=== PATIENT | male | born 1960 | race Caucasian/White ===

== ENCOUNTER 2016-11-20 11:14 | Emergency (ER) | payer OTHER, MEDICARE ==
[~2016-11-20] VITALS: Ht 172.7 cm; Wt 95.3 kg
[~2016-11-20 11:14] MED LIST: BACTRIM DS 8001 TAB PO; KEFLEX 250MG C250 MG PO; OXYCODONE HYDRO30 MG PO
[2016-11-20 11:33] VITALS: BP 139/92
--- NOTE | 2016-11-20 12:18 | ED SKIN/ALLERGY COMPLAINT ---
History of Present Illness General Chief Complaint: Animal/Insect Bite Stated Complaint: INSECT BITE TO RIGHT ELBOW Source: patient Exam Limitations: no limitations Vital Signs & Intake/Output Vital Signs & Intake/Output ED Intake and Output 11/21 0000 11/20 1200 Intake Total 10 Output Total Balance 10 Intake, Oral 10 Patient 210 lb Weight Allergies Coded Allergies: NO KNOWN ALLERGIES (08/16/11) Triage Note: RECEIVED 56 YO MALE C/O BIT ON RIGHT ELBOW ABOUT 1 1/2 WEEKS AGO. AREA IS REDDENED, SWOLLEN AND SMALL KELBY SIZE AREA OPEN AND NOT HEALING. PT REPORTS FEVERS ALL WEEK, FEELING TIRED, FATIGUED. PT PRONE TO INFECTIONS. PT S/P TOTAL RIGHT KNEE REPLACEMENT Triage Nurses Notes Reviewed? yes HPI: This patient is a 56-year-old male who presented to the emergency department today for evaluation of a questionable insect bite to his right elbow. He reported that he noticed this about a week and a half ago. He noticed it because the area was itchy. He reported that it continually has been scabbing over and then the scab falls off. He reported that it seems open and a little red around it now. The patient reported that he has been having tactile fevers and chills. He reported nausea and shortness of breath. He reported that he feels bloated and at his face feels swollen. He denied any chest pain, abdominal pain. He did report feeling fatigued. He does live in the [facility] and is wondering if he could have had a tick bite. (VANESSA MULLIGAN PA-C) Reconcile Medications Doxycycline Hyclate (Vibramycin) 100 MG CAPSULE 1 CAP PO BID insect bite OXYCODONE HCL (Oxycodone Hydrochloride) 30 MG TABLET 2 TAB PO TID PRN PAIN ( Reported) (GAURAV MONDRAGON,BENSON) Past History Travel History Traveled to [place] past 21 day No Medical History Any Pertinent Medical History? 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 No (VANESSA MULLIGAN PA-C) Review of Systems Review of Systems Constitutional: Reports: see HPI. EENTM: Reports: no symptoms. Respiratory: Reports: see HPI. Cardiovascular: Reports: no symptoms. GI: Reports: see HPI. Genitourinary: Reports: no symptoms. Musculoskeletal: Reports: no symptoms. Skin: Reports: see HPI. Neurological/Psychological: Reports: no symptoms. All Other Systems: Reviewed and Negative (VANESSA MULLIGAN PA-C) Physical Exam Physical Exam General Appearance: well developed/nourished, no apparent distress, alert, awake Comments: Well-developed well-nourished person in no acute distress HEENT: Normal EENT exam, head normocephalic, moist mucous membranes Neck: Supple, no lymphadenopathy Back: Normal gait Cardiovascular: Regular rate and rhythm with no murmurs Respiratory: Chest nontender. No respiratory distress. Breath sounds clear to auscultation bilaterally Abdomen: Soft, nontender and nondistended Right elbow: Full range of motion of the elbow. No bony or muscular deformities. Approximately 1 cm in diameter, ulceration to the olecranon process with mild amount of surrounding erythema with no surrounding edema. Mild tenderness to palpation. Neuro: Alert oriented x3, cranial nerves II through XII grossly intact. Skin: Small, round, possibly 1 mm in diameter, erythematous, macular lesions to the stomach with overlying excoriations. skin is warm and dry. Psych: Mood and affect is normal, memory and judgment is normal. (VANESSA MULLIGAN PA-C) Progress Differential Diagnosis: abscess/cellulitis, allergic reaction, contact dermatitis, drug reaction, erythema multiforme, lyme disease, urticaria Plan of Care: Orders Procedure Date/time Status Add-on Test (ER Only) 11/20 1301 Active DIRECT BILIRUBIN 11/20 1220 Complete Initial ED EKG: normal axis, normal intervals, normal p-waves, normal QRS complex, normal sinus rhythm, no ST T wave changes, 63 BPM (VANESSA MULLIGAN PA-C) Comments: 11/22/2016 4:58:32 PM Jake called me in the emergency department stating he had missed "3 calls from the hospital". I reviewed his emergency department visit but was unable to determine what the cause might be related to. He states he is still having intermittent fevers and arm swelling secondary to some sort of insect bite and I've asked that he return to the emergency department given the persistence of the symptoms for reevaluation. 11/22/2016 7:45:10 PM Jake contacted me again short while ago stating that he has spoken with Freddie Glover MD his primary care doctor that he would be following up with Freddie Glover MD on . He therefore will not be reevaluated in the emergency department. He states that he feels well in general and that his fever has been under control and that he has been tolerating his medications. (JAGDISH MONDRAGON,GIFTY Krishnan) Departure Departure Disposition: HOME OR SELF CARE Condition: Stable Clinical Impression Primary Impression: Insect bite Qualifiers: Encounter type: initial encounter Qualified Code: W57.XXXA - Bitten or stung by nonvenomous insect and other nonvenomous arthropods, initial encounter Referrals: MULUGETA GLOVER MD (PCP/Family) Additional Instructions: Take antibiotic as prescribed for the full duration. Please return to the emergency department for any worsening symptoms or concerns. Departure Forms: Customer Survey General Discharge Information Prescriptions: Current Visit Scripts Doxycycline Hyclate (Vibramycin) 1 CAP PO BID #20 CAP (VANESSA MULLIGAN PA-C) PA/ELECTRO MECHANICAL SOLAR TECHNICIAN Co-Sign Statement Statement: ED Attending supervision documentation- [] I saw and evaluated the patient. I have also reviewed all the pertinent lab results and diagnostic results. I agree with the findings and the plan of care as documented in the PA's/ELECTRO MECHANICAL SOLAR TECHNICIAN's documentation. [X] I have reviewed the ED Record and agree with the PA's/ELECTRO MECHANICAL SOLAR TECHNICIAN's documentation. [] Additions or exceptions (if any) to the PAs/ELECTRO MECHANICAL SOLAR TECHNICIAN's note and plan are summarized below: [] (GAURAV MONDRAGON,BENSON)
[2016-11-20 12:34] LABS: ABSOLUTE BASOPHIL COUNT 0 /CUMM (0.0-0.2); ABSOLUTE EOSINOPHIL COUNT 0.1 /CUMM (0.0-0.7); ABSOLUTE GRANULOCYTE CT 1.2 /CUMM (1.4-6.5); ABSOLUTE LYMPH COUNT 3.4 /CUMM (1.2-3.4); ABSOLUTE MONOCYTE COUNT 0.4 /CUMM (0.10-0.60); BASOPHIL % 0.8 % (0.0-2.0); EOSINOPHIL % 1.3 % (0-5); GRANULOCYTE % 22.8 % (42.2-75.2); MEAN CORPUSCULAR HGB 30.9 PG (27.0-31.0); MEAN CORPUSCULAR HGB CONC 33.4 G/DL (33.0-37.0); MEAN CORPUSCULAR VOLUME 92.4 FL (80.0-94.0); MEAN PLATELET VOLUME 5.9 FL (7.4-10.4); PLATELET COUNT 107 /CUMM (130-400); RBC DISTRIBUTION WIDTH 16.4 % (11.5-14.5); RED BLOOD CELL CT 4.65 /CUMM (4.70-6.10); WHITE BLOOD CELL COUNT 5.1 /CUMM (4.8-10.8)
[2016-11-20] MEDS ORDERED: VIBRAMYCIN100 MG PO (13:34)
== END 2016-11-20 13:37 ==
LOC: ERH 11:14
PROVIDERS: Physician Assistant
DX: S50.361A Insect bite (nonvenomous) of right elbow, initial encounter (principal); W57.XXXA Bitten or stung by nonvenomous insect and other nonvenomous arthropods, initial encounter; R53.83 Other fatigue
CPT/HCPCS: 86618; 93005; 93010

== ENCOUNTER 2017-01-04 18:05 | Emergency (ER) | payer OTHER, MEDICARE ==
[~2017-01-04] VITALS: Ht 167.6 cm; Wt 95.3 kg
[~2017-01-04 18:05] MED LIST changes: +VIBRAMYCIN100 MG PO
[2017-01-04 18:08] VITALS: BP 126/76
--- NOTE | 2017-01-04 18:34 | ED SKIN/ALLERGY COMPLAINT ---
History of Present Illness General Chief Complaint: Animal/Insect Bite Stated Complaint: TICK Source: patient Exam Limitations: no limitations Vital Signs & Intake/Output Vital Signs & Intake/Output Vital Signs Date Time Temp Pulse Resp B/P B/P Pulse O2 O2 Flow FiO2 Mean Ox Delivery Rate 01/04 1808 97.3 83 16 126/76 96 Room Air Allergies Coded Allergies: NO KNOWN ALLERGIES (08/16/11) Reconcile Medications Doxycycline Hyclate 100 MG CAPSULE 1 CAP PO BID TICK BITE Doxycycline Hyclate (Vibramycin) 100 MG CAPSULE 1 CAP PO BID insect bite Mupirocin Calcium (Bactroban) 2 % CREAM..G. 1 MAURO TOP TID WOUND apply to affected area(s) OXYCODONE HCL (Oxycodone Hydrochloride) 30 MG TABLET 2 TAB PO TID PRN PAIN ( Reported) Triage Note: PT STATES HE HAS A TICK STUCK IN HIM LEFT THIGH PT STATES IT HAS BEEN IN HIS LEG FOR THE PAST TWO WEEKS. PT HAS BEEN PICKING AT IT. Triage Nurses Notes Reviewed? yes Onset: Gradual Duration: week(s): (2) Timing: recent history Severity: moderate Severity Numbers: 7 Location: extremities (LEFT LEG) Possible Factors: TICK No Modifying Factors: none HPI: Patient is a 57-year-old male presenting to the emergency Department chief complaint of tick bite to left thigh that happened 2 weeks ago. Patient reports that he noticed a tick on his thigh tried picking out, a scab keeps forming, unsure if it tICK is still in there. Denies any nausea or vomiting. Tactile fevers intermittently over the past 2 weeks. Denies any rashes except for the redness around where the tick bit him. Tender to palpation in this area. Denies taking anything to help with his symptoms. History similar symptoms about a month and half ago where he was put on doxycycline, his Lyme titer came back negative according to the patient. Denies any headaches. No fevers or chills. (ELIAS GOODSON) Past History Travel History Traveled to [place] past 21 day No Medical History Any Pertinent Medical History? 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 No (ELIAS GOODSON) Review of Systems Review of Systems Constitutional: Reports: fever. Comments Review of systems: See HPI, All other systems negative. Constitutional, no weight loss HEENT: No visual changes no sore throat no congestion Cardiovascular: No chest pain ,palpitation Skin, no jaundice Respiratory: No dyspnea cough sputum or hemoptysis GI: No nausea no vomiting : No dysuria No hematuria Muscle skeletal: no back pain, no neck pain, Neurologic: No numbness no confusion NO AGUILAR Psych: No stress anxiety or depression,. Heme/endocrine: No bruising no bleeding no polyuria or polydipsia Immunology: No splenectomy or history of AIDS (ELIAS GOODSON) Physical Exam Physical Exam General Appearance: well developed/nourished, no apparent distress, alert, comfortable Comments: Well-developed well-nourished person in no acute distress HEENT: Pupils equally round and reactive to light and accommodation. Nose is atraumatic. Neck: Normal inspection Cardiovascular: normal JVP Respiratory: No respiratory distress. Extremity: No edema, no calf tenderness to palpation, normal and equal pulses. Neuro: Alert oriented x3, motor sensory normal Skin: SCABBED Lesion approximately 2 cm in length on the inner mid left thigh with small amount of erythema surrounding this area. Erythema is approximately 1 cm. Mildly tender to palpation. Nonfluctuant. Flat. NO TICK PRESENT. Psych: Mood and affect is normal, memory and judgment is normal. (ELIAS GOODSON) Progress Differential Diagnosis: lYME DISEASE, CELLULITIS, ABRASION Plan of Care: Orders Procedure Date/time Status LYME TITRE 01/05 1844 Active Laboratory Tests 01/04/171856: Lyme Disease Antibody Pending Comments: Due to recent history of tick bite, Lyme titer drawn. Patient be sent is on doxycycline which will help with cellulitis, we will call with any positive Lyme titer results. Patient also given Bactroban ointment to use on the scabbing lesion. He was advised to stop PICKING the area. (ELIAS GOODSON) Departure Departure Time of Disposition: 1843 Disposition: HOME OR SELF CARE Condition: Stable Clinical Impression Primary Impression: Tick bite Qualifiers: Encounter type: initial encounter Qualified Code: W57.XXXA - Bitten or stung by nonvenomous insect and other nonvenomous arthropods, initial encounter Secondary Impressions: Cellulitis Qualifiers: Site of cellulitis: extremity Site of cellulitis of extremity: lower extremity Laterality: left Qualified Code: L03.116 - Cellulitis of left lower limb Referrals: MULUGETA GLOVER MD (PCP/Family) Additional Instructions: We will call you with any positive results. Take doxycycline as prescribed. Use topical Bactroban as directed. Apply warm compresses to affected area. Return for worsening symptoms or concerns. Departure Forms: Customer Survey General Discharge Information Prescriptions: Current Visit Scripts Doxycycline Hyclate 1 CAP PO BID #20 CAP Mupirocin Calcium (Bactroban) 1 MAURO TOP TID #30 GM apply to affected area(s) (ELIAS GOODSON) PA/COATING MIXER Co-Sign Statement Statement: ED Attending supervision documentation- [] I saw and evaluated the patient. I have also reviewed all the pertinent lab results and diagnostic results. I agree with the findings and the plan of care as documented in the PA's/COATING MIXER's documentation. [x] I have reviewed the ED Record and agree with the PA's/COATING MIXER's documentation. [] Additions or exceptions (if any) to the PAs/COATING MIXER's note and plan are summarized below: [] (GIFTY GARCIAS DO
[2017-01-04] MEDS ORDERED: BACTROBAN15 GM TOP (18:47)
[2017-01-04] MEDS ORDERED: DOXYCYCLINE HY100 M2 PO (18:47)
== END 2017-01-04 19:09 ==
LOC: ERH 18:05
DX: S70.362A Insect bite (nonvenomous), left thigh, initial encounter (principal); L03.116 Cellulitis of left lower limb; W57.XXXA Bitten or stung by nonvenomous insect and other nonvenomous arthropods, initial encounter; Y93.9 Activity, unspecified; Y92.9 Unspecified place or not applicable
CPT/HCPCS: 86618

== ENCOUNTER 2017-02-11 16:28 | Emergency (ER) | payer OTHER, MEDICARE ==
[~2017-02-11] VITALS: Ht 170.2 cm; Wt 99.8 kg
[~2017-02-11 16:28] MED LIST changes: +BACTROBAN15 GM TOP; +DOXYCYCLINE HY100 M2 PO
[2017-02-11] MEDS ORDERED: OXYCODONE HCL30 M1 PO (17:31)
[2017-02-11] MEDS ORDERED: DIAZEPAM10 M1 PO (17:31)
[2017-02-11] MEDS ORDERED: ASPIRIN EC325 M2 PO (17:33)
--- NOTE | 2017-02-11 17:44 | ED GENERAL ADULT ---
History of Present Illness General Chief Complaint: General Adult Stated Complaint: WEAKNESS/ABD BLOATING/TIC/SPIDER BITE MULTIPLE CMP Source: patient, family, old records Exam Limitations: no limitations Vital Signs & Intake/Output Vital Signs & Intake/Output Vital Signs Date Time Temp Pulse Resp B/P B/P Pulse O2 O2 Flow FiO2 Mean Ox Delivery Rate 02/12 2004 97.6 62 16 139/81 95 Room Air 02/11 1638 97.3 76 15 130/81 94 Room Air Room Air Allergies Coded Allergies: NO KNOWN ALLERGIES (08/16/11) Reconcile Medications Aspirin (Ecotrin*) 325 MG TABLET.DR 1 TAB PO DAILY HEART/BLOOD (Reported) Diazepam 10 MG TABLET 1 TAB PO QPM SLEEP (Reported) Oxycodone HCl 30 MG TABLET 1 TAB PO BID PAIN (Reported) Triage Note: PT TO ED FOR C/C OF TWO TICK BITES, A SPIDER BITE, LACK OF ENERGY, HARD BLOATED ABD FOR TWO WEEKS. +FOUL SMELLING URINE, DENIES DIARRHEA OR DIFFICULTY WITH BM. +DIZZINESS. DENIES CHEST PAIN OR SOB. POOR APPETITE Triage Nurses Notes Reviewed? yes HPI: Patient presents with a two-week history of abdominal distention, anorexia, early Genesis. Patient states that he was constipated but has been having diarrhea for the past 2 days. There are no fevers or chills. Patient is concerned about his liver because he says he drinks more than he should. He also states that occasionally his urine is very foul-smelling. He denies any chest pain. He does admit to fatigue. Patient states that he slept until 1:30 today which is very atypical for him. He denies any abdominal pain other than the bloating. (ELENA MONDRAGON,DENNIS Castro) Past History Travel History Traveled to [place] past 21 day No Medical History Any Pertinent Medical History? 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 No (DENNIS PARKER MD) Review of Systems Review of Systems Constitutional: Reports: see HPI, weakness. EENTM: Reports: no symptoms. Respiratory: Reports: no symptoms. Cardiovascular: Reports: no symptoms. GI: Reports: see HPI, bloating, constipation, diarrhea. Genitourinary: Reports: no symptoms. Musculoskeletal: Reports: no symptoms. Skin: Reports: no symptoms. Neurological/Psychological: Reports: no symptoms. Hematologic/Endocrine: Reports: no symptoms. Immunologic/Allergic: Reports: no symptoms. All Other Systems: Reviewed and Negative (ELENA MONDRAGON,DENNIS Castro) Physical Exam Physical Exam General Appearance: well developed/nourished, alert, awake, mild distress Head: atraumatic, normal appearance Eyes: Bilateral: PERRL, EOMI. Ears, Nose, Throat: normal pharynx, normal ENT inspection, hearing grossly normal Neck: normal inspection, supple, full range of motion Respiratory: normal breath sounds, chest non-tender, no respiratory distress, lungs clear Cardiovascular: regular rate/rhythm, normal peripheral pulses Gastrointestinal: normal bowel sounds, soft, non-tender, no organomegaly, distention Back: normal inspection, normal range of motion Extremities: normal inspection, normal capillary refill, normal range of motion Neurologic/Psych: no motor/sensory deficits, awake, alert, oriented x 3, normal gait, normal mood/affect Skin: intact, normal color, warm/dry Lymphatic: no anterior cervical ralph Core Measures ACS in differential dx? No CVA/TIA Diagnosis: No Severe Sepsis Present: No Septic Shock Present: No (ELENA MONDRAGON,DENNIS Castro) Progress Differential Diagnoses I considered the following diagnoses in my evaluation of the patient: [ Electrolyte abnormality, small bowel obstruction, UTI, ascites] Plan of Care: Orders Procedure Date/time Status MISTAKE 02/11 1743 Active URINE DRUGS OF ABUSE 02/11 1743 Complete URINALYSIS 02/11 1743 Complete LIPASE 02/11 1743 Complete ETHANOL 02/11 1743 Complete COMPREHENSIVE METABOLIC PANEL 02/11 1743 Complete CBC WITHOUT DIFFERENTIAL 02/11 1743 Complete AMYLASE 02/11 1743 Complete Laboratory Tests 02/11/17 2006: Urine Opiates Screen < 100.00, Methadone Screen < 40, Barbiturate Screen < 60, Ur Phencyclidine Scrn < 6.00, Amphetamines Screen < 100, U Benzodiazepines Scrn 167, Urine Cocaine Screen < 50, Urine Cannabis Screen < 5.00, Urine Color YEL, Urine Clarity CLEAR, Urine pH 6.0, Ur Specific [place] 1.010, Urine Protein TRACE H, Urine Ketones NEG, Urine Nitrite NEG, Urine Bilirubin NEG, Urine Urobilinogen 1.0, Ur Leukocyte Esterase NEG, Ur Microscopic SEDIMENT EXAMINED, Micro UA Comment NEGATIVE MICROSCOPIC, Urine Hemoglobin NEG, Urine Glucose NEG 02/11/17 1755: Anion Gap 16, Estimated GFR > 60, BUN/Creatinine Ratio 13.0, Glucose 95, Calcium 9.3, Total Bilirubin 2.0 H, AST 244 H, ALT 146 H, Alkaline Phosphatase 66, Total Protein 8.6 H, Albumin 4.9, Globulin 3.7, Albumin/Globulin Ratio 1.3, Amylase 50, Lipase 129, CBC w Diff NO MAN DIFF REQ, RBC 4.81, MCV 93.9, MCH 31.6 H, RDW 13.3, MPV 6.5 L, Gran % 19.1 L, Lymphocytes % 75.3 H, Monocytes % 4.5 , Eosinophils % 0.7, Basophils % 0.4, Absolute Granulocytes 1.7, Absolute Lymphocytes 6.6 H, Absolute Monocytes 0.4, Absolute Eosinophils 0.1, Absolute Basophils 0, PUBS MCHC 33.7, Serum Alcohol 194.0 Initial ED EKG: none Hand-Off Endorsed To: GIFTY DUBON MD Endorsed Time: 1899 Pending: CT, labs (ELENA MONDRAGON,DENNIS Castro) Diagnostic Imaging: Discussed w/RAD: CT Scan. Radiology Impression: PATIENT: YESENIA STEVENS PRESENT AGE: 57 PATIENT ACCOUNT NO: [id number] : 62 LOCATION: [facility] ORDERING PHYSICIAN: DENNIS PARKER MD SERVICE DATE: 02/11/17 EXAM TYPE: CAT - CT ABD & PELVIS W IV CONTRAST Indication: Abdominal distention EXAMINATION: Contrast enhanced CT of the abdomen pelvis postcontrast. 94 mL Optiray 320 area Comparison previous dated 02/21/2011. FINDINGS: Lung bases are grossly clear. Upper abdomen Liver is now low attenuation. This may be fatty change. Hepatitis could not be excluded. The spleen is within normal limits. Pancreas shows some fatty attenuation in the head consistent with fatty infiltration. The adrenal glands are within normal limits. The kidneys are in the early nephrographic phase. Small areas of nonenhancement mid pole left and mid pole right may be an evolving cyst. to small to characterize on this study. There is no bulky adenopathy here. No free fluid. The bowel pattern is felt to be nonobstructing. The aorta is normal in caliber. CT pelvis No free fluid in the deep pelvis. Beginnings of fatty inguinal herniation on the left. Partially visualized appendix within normal limits. There is no bulky adenopathy here. IMPRESSION: No acute finding. Nonobstructive bowel pattern. No suspicious fluid collection. There is been change in the appearance of the liver. Now low attenuation throughout which may be consistent with fatty change versus hepatitis. There is also been change in the pancreatic head. Enlargement with overall fatty signal is now seen. This may represent fatty infiltration new from previous. Lipomatous lesion such as sarcoma cannot be excluded. Pre and postcontrast MR would be recommended to fully evaluate Beginnings of small fatty inguinal herniation on left DICTATED BY: GIFTY RENDON MD DATE/TIME DICTATED:02/11/172021 PHOTOGRAMMETRIST:HERMES DATE/TIME TRANSCRIBED:02/11/172021 CONFIDENTIAL, DO NOT COPY WITHOUT APPROPRIATE AUTHORIZATION. <Electronically signed in Other Vendor System> SIGNED BY: GIFTY RENDON MD 02/11/172037 Comments: 21:20 long discussion with yesenia gonzalez: test results and etoh dependence and w/d. advised not to go cold turkey, but wean. possible htn,tachycardia, seizures, confusion and discussed. pt will seek outpt detox. (GIFTY DUBON MD) Departure Departure Condition: Stable Referrals: MULUGETA GLOVER MD (PCP/Family) Departure Forms: Customer Survey General Discharge Information (DENNIS PARKER MD) Departure Disposition: HOME OR SELF CARE Clinical Impression Primary Impression: Unspecified abdominal pain Qualifiers: Abdominal location: generalized Qualified Code: R10.84 - Generalized abdominal pain Secondary Impressions: Alcohol intoxication, Alcoholic hepatitis, Hepatic steatosis Additional Instructions: Please follow-up with your primary care physician this week for further evaluation and testing. CAT scan shows changes consistent with fatty liver disease and perhaps the beginning of fatty pancreas. This will need to be investigated further. Return if any concerns or sudden worsening. (GIFTY DUBON MD) Critical Care Note Critical Care Note Critical Care Time: non-applicable (DENNIS PARKER MD)
[2017-02-11 18:06] LABS: ABSOLUTE BASOPHIL COUNT 0 /CUMM (0.0-0.2); ABSOLUTE EOSINOPHIL COUNT 0.1 /CUMM (0.0-0.7); ABSOLUTE GRANULOCYTE CT 1.7 /CUMM (1.4-6.5); ABSOLUTE LYMPH COUNT 6.6 /CUMM (1.2-3.4); ABSOLUTE MONOCYTE COUNT 0.4 /CUMM (0.10-0.60); BASOPHIL % 0.4 % (0.0-2.0); EOSINOPHIL % 0.7 % (0-5); GRANULOCYTE % 19.1 % (42.2-75.2); HEMATOCRIT 45.1 % (42-52); MEAN CORPUSCULAR HGB 31.6 PG (27.0-31.0); MEAN CORPUSCULAR HGB CONC 33.7 G/DL (33.0-37.0); MEAN CORPUSCULAR VOLUME 93.9 FL (80.0-94.0); MEAN PLATELET VOLUME 6.5 FL (7.4-10.4); PLATELET COUNT 138 /CUMM (130-400); RBC DISTRIBUTION WIDTH 13.3 % (11.5-14.5); RED BLOOD CELL CT 4.81 /CUMM (4.70-6.10); WHITE BLOOD CELL COUNT 8.7 /CUMM (4.8-10.8)
[2017-02-11 20:04] VITALS: BP 139/81
--- NOTE | 2017-02-11 20:38 | CT SCAN REPORT ---
Indication: Abdominal distention EXAMINATION: Contrast enhanced CT of the abdomen pelvis postcontrast. 94 mL Optiray 320 area Comparison previous dated 02/21/2011. FINDINGS: Lung bases are grossly clear. Upper abdomen Liver is now low attenuation. This may be fatty change. Hepatitis could not be excluded. The spleen is within normal limits. Pancreas shows some fatty attenuation in the head consistent with fatty infiltration. The adrenal glands are within normal limits. The kidneys are in the early nephrographic phase. Small areas of nonenhancement mid pole left and mid pole right may be an evolving cyst. to small to characterize on this study. There is no bulky adenopathy here. No free fluid. The bowel pattern is felt to be nonobstructing. The aorta is normal in caliber. CT pelvis No free fluid in the deep pelvis. Beginnings of fatty inguinal herniation on the left. Partially visualized appendix within normal limits. There is no bulky adenopathy here. IMPRESSION: No acute finding. Nonobstructive bowel pattern. No suspicious fluid collection. There is been change in the appearance of the liver. Now low attenuation throughout which may be consistent with fatty change versus hepatitis. There is also been change in the pancreatic head. Enlargement with overall fatty signal is now seen. This may represent fatty infiltration new from previous. Lipomatous lesion such as sarcoma cannot be excluded. Pre and postcontrast MR would be recommended to fully evaluate Beginnings of small fatty inguinal herniation on left
== END 2017-02-11 21:37 ==
LOC: ERH 16:28
PROVIDERS: Emergency Medicine
DX: K70.10 Alcoholic hepatitis without ascites (principal); K76.0 Fatty (change of) liver, not elsewhere classified; F10.129 Alcohol abuse with intoxication, unspecified
CPT/HCPCS: 74177; 80307; 81001; 96360; 96361; G0480